=== PATIENT | male | born 1955 | race Caucasian/White ===

== ENCOUNTER 2024-02-04 05:45 | Day surgery (SDC) | payer OTHER ==
[~2024-02-04] VITALS: Ht 165.1 cm; Wt 70.3 kg
[2024-02-04] MEDS ORDERED: fentaNYL CITRATE/PF 100 MCG/2 ML AMP ONE (07:39)
[2024-02-04] MEDS ORDERED: ACETAMINOPHEN I.V. 1000 MG 100 ML IV ONE (07:40)
[2024-02-04] MEDS ORDERED: MIDAZOLAM HCL 2 MG/2 ML VIAL (VERSED) ONE (07:40)
[2024-02-04] MEDS ORDERED: ONDANSETRON HCL 4 MG/2 ML VIAL IVP PRN (07:45)
[2024-02-04] MEDS ORDERED: HYDROmorphone 1 MG/ML INJ. CARTRIDGE IVP PRN (07:45)
[2024-02-04] MEDS ORDERED: KETOROLAC TROMETHAMINE 30 MG VIAL ONE (07:45)
[2024-02-04] MEDS ORDERED: LR 1,000 ML IV ONE (07:45)
[2024-02-04] MEDS ORDERED: NS IRRIG SOLN 1000 ML IR ONE (07:45)
[2024-02-04] MEDS ORDERED: SEVOFLURANE 15 MIN GAS INH ONE (07:45)
[2024-02-04] MEDS ORDERED: PROPOFOL 200MG/ 20ML VIAL (DIPRIVAN) IV ONE (07:45)
[2024-02-04] MEDS ORDERED: fentaNYL CITRATE/PF 100 MCG/2 ML AMP IVP PRN ×2 (07:45)
[2024-02-04] MEDS ORDERED: LR 1,000 ML IV.SOLN IV ONE (07:45)
[2024-02-04] MEDS ORDERED: DEXAMETHASONE SOD PHOSPHATE 4 MG/ML VIAL ONE (07:45)
[2024-02-04 15:26] VITALS: BP_SYST 141; PULSE 53; RESP 18; TEMP 97.4; O2SAT 98
== END 2024-02-04 11:23 | disposition home or self-care (01) ==
LOC: SMU 05:45 → SDS 05:45
PROVIDERS: ATTEND Urology
DX: N40.1 Benign prostatic hyperplasia with lower urinary tract symptoms (principal); N13.8 Other obstructive and reflux uropathy; K21.9 Gastro-esophageal reflux disease without esophagitis; I10 Essential (primary) hypertension; E11.9 Type 2 diabetes mellitus without complications; Z79.899 Other long term (current) drug therapy
CPT/HCPCS: 87081; 52601; 88305; J1100; J1885; J3465; J2704; J3010; J7120; J0131